=== PATIENT | female | born 1970 | race Two or more races ===

== ENCOUNTER 2021-10-21 08:45 | Outpatient (AMB) | payer BC, SELFPAY ==
--- NOTE | 2021-10-21 11:28 | UROVISIT ---
Intake Vital Signs 10/21/21 11:29 Height 1.55 m Height Method Stated Weight 62.596 kg Weight Measurement Method Estimated by Patient BMI 26.0 Intake Visit Reasons: 6 week follow up [employer] Required: Yes Is patient in pain?: No Allergy Allergies No Known Allergies Allergy (Verified 10/21/21 11:28) Home Meds Medication Reconciliation propranolol 10 mg tablet 10 mg PO QDAY 08/07/18 [History Confirmed 10/21/21] cyclobenzaprine 10 mg tablet 10 mg PO Q8H PRN #14 tab 10/28/19 [Rx Confirmed 10/21/21] meloxicam 15 mg tablet (Mobic) 15 mg PO QDAY #10 tab 10/28/19 [Rx Confirmed 10/21/21] allopurinol 100 mg tablet 100 mg PO QDAY 08/30/21 [History Confirmed 10/21/21] atorvastatin 10 mg tablet 10 mg PO QDAY 08/30/21 [History Confirmed 10/21/21] benazepril 20 mg-hydrochlorothiazide 12.5 mg tablet 1 tab PO QDAY 08/30/21 [History Confirmed 10/21/21] ergocalciferol (vitamin D2) 1,250 mcg (50,000 unit) capsule 1,250 mcg PO QMONTH 08/30/21 [History Confirmed 10/21/21] metformin 500 mg tablet 500 mg PO BID 08/30/21 [History Confirmed 10/21/21] Nurse Note: Patient had phone call visit with Dr Macias. Patient to be scheduled for mag 3 scan with lasix and follow up in 3 months. mvp Fall Screening Do you have a fear of falling?: No Have you had a fall in the last 2 months?: No Do you use an assistive device for ambulation?: No Current Vital Signs Height Height Method Weight Weight Measurement Method Body Mass Index 1.55 m Stated 62.596 kg Estimated by Patient 26.0 10/21/21 11:29 10/21/21 11:29 10/21/21 11:29 10/21/21 11:29 10/21/21 11:29 Nursing Documentation Social History Living Situation History Housing: House Tobacco History Smoking Status: Never smoker Alcohol History Alcohol Intake: Current Office Procedures Uro Level of Care Nursing/Assessment/Reassessment Patient Status: Established Patient Nursing Assessment/Reassessment: Update [facility] data in EMR and Medication Reconciliation Coordination of Care: Ref for ancillary service Special Needs: Language special needs Established Patient Point Assignment: 40 Uro Telephone call w/Clinical staff: 21-30 min Urology Clinic Office Visit Office Visit Date of visit:: October 21, 2021 08:45 Allergies & Home Medications: Allergies No Known Allergies Allergy (Verified 08/30/21 15:15) Visit: Reason for visit: [] Office Visit findings: []
[2021-10-21 11:29] VITALS: BMI 26.0
--- NOTE | 2021-10-22 07:03 | URONOTEN_ITS ---
RE: JUANITA DE LA VEGA : 1970 DATE: 10/21/2021 Because of emergency mandate, [id number] visit is not possible, therefore this medical necessary visit is conducted via telephonic communication. Fifteen minutes were spent in counseling and coordination of care of patient. CHIEF COMPLAINT: Ureteropelvic junction obstruction on the right side, status post right robotic pyeloplasty and right robotic pyelolithotomy. COMORBID CONDITIONS: 1. Diabetes mellitus. 2. Hypertension. 3. History of stone disease. HISTORY OF PRESENT ILLNESS: This is a 51-year-old English-speaking female. She underwent above procedure and she has done very well. She had history of abdominal pain. CAT scan was done. This revealed severe hydronephrosis on the right side. She is status post robotic pyeloplasty. She has frequency of urination 2 to 3 times at night, 6 to 8 times during the day. There is no history of hematuria, dysuria, or urinary tract infection. She denies any abdominal pain. COMORBID CONDITION: 1. Diabetes mellitus. 2. Hypertension. 3. She is 3, para 3, no hysterectomy. Past medical history, family history, review of systems, personal history, please refer to patient's history form dated, 10/21/2021. It is in HPI, in EMR. RECOMMENDATION: MAG-3 renal scan with Lasix and followup appointment after that. CAT scan was reviewed by me. She has severe right hydronephrosis. It could be a residual dilation of the calices of longstanding duration. Her BUN is 11, creatinine is 0.7, GFR is 60. Appointment for followup visit in Urology office after MAG-3 renal scan is given. DT: 14:41:55 TT: 21:30:00 Ref: - TID: [id number]
== END 2021-10-21 13:49 | disposition home or self-care (01) ==
LOC: HODUROTH 08:45
PROVIDERS: PCP Internal Medicine; Visit Provider Urology

== ENCOUNTER → 2024-08-20 | Outpatient (CLI) | payer BC, SELFPAY ==
[2024-08-20 08:41] LABS: Glucose Estimated Average 114 mg/dL (80-131); Hemoglobin A1C 5.6 % Hgb (4.8-6.0)
[2024-08-20 08:50] LABS: Creatinine MALB Rnd Ur 83 mg/dL (30-125); Microalbumin Creat Ratio 8 mg/gCrea (<30); Microalbumin, Random Urine 7 mg/L (0-300)
[2024-08-20 08:50] LABS: Alanine Aminotransferase 17 U/L (10-49); Albumin, Serum 4.5 gm/dL (3.5-5.0); Albumin/Globulin Ratio 2.1 (1.2-2.2); Alkaline Phosphatase 75 U/L (46-116); Anion Gap 5 (7-16); Aspartate Amino Transferase < 10 U/L (0-34); BUN/Creatinine Ratio 21 Ratio (12-20); Bilirubin,Total 0.4 mg/dL (0.3-1.2); Blood Urea Nitrogen 15 mg/dL (9-23); Calcium 10.5 mg/dL (8.3-10.6); Calcium (Corrected) 10.5 mg/dL (8.5-10.1); Carbon Dioxide 28.6 mMol/L (20.0-31.0); Cardiac Risk Estimate 3.7 RATIO (3.7-5.6); Chloride 107 mMol/L (98-107); Cholesterol 224 mg/dL (132-200); Creatinine (Component) 0.7 mg/dL (0.6-1.3); Globulin 2.1 gm/dL (2.3-3.5); Glucose 112 mg/dL (74-106); HDL Cholesterol 61 mg/dL (40-60); LDL Cholesterol,Calculated 139 mg/dL (0-130); Osmolality,Calculated 283 (275-295); Potassium 4.5 mMol/L (3.4-5.1); Sodium 141 mMol/L (136-145); Total Protein 6.6 gm/dL (5.7-8.2); Triglycerides 120 mg/dL (30-150); eGFR > 60 See Note
== END | disposition home or self-care (01) ==
LOC: COPL 07:07
PROVIDERS: PCP Internal Medicine; Referring Provider Internal Medicine; Visit Provider Internal Medicine
DX: E11.9 Type 2 diabetes mellitus without complications (principal); I10 Essential (primary) hypertension; E78.5 Hyperlipidemia, unspecified
CPT/HCPCS: 36415; 80053; 80061; 82043; 82570; 83036

== ENCOUNTER 2024-10-02 12:00 | Day surgery (SDC) | payer BC, SELFPAY ==
[2024-10-01 15:20] VITALS: BMI 27.7
[2024-10-02] VITALS (14 sets, daily range): BP systolic 83–154; BP diastolic 58–83; PULSE 52–92; RESP 13–22; TEMP 36.4; O2SAT 97–100; BMI 28.3
[2024-10-02] MEDS: fentaNYL CIT INJ 50 mCg/ML AMP 2ML (ASD USE ONLY) IV (14:00)
[2024-10-02] MEDS: MIDAZOLAM INJ 1 MG/ML VIAL 2 ML (ASD USE ONLY) 2 MG IV (14:03)
[2024-10-02] MEDS: DiphenhydrAMINE INJ 50 MG/ML VIAL 25 MG IV (14:14)
--- NOTE | 2024-10-02 15:08 | SUR.PHASEII ---
1505 Pt more awake and alert. Via [place]i speaker pt denies pain or N/V. Abd soft-pt passing flatus. Bijan PO fluids.
--- NOTE | 2024-10-02 15:36 | SUR.PHASEII ---
1524 Pt assessment unchanged. No complaints. Amb with steady gait. Able to dress self. Pt and given dc instructions. Both state understanding. Pt meets dc criteria-to home.
== END 2024-10-02 15:24 | disposition home or self-care (01) ==
PROVIDERS: PCP Internal Medicine; Referring Provider Surgery; Visit Provider Surgery
PROC: 0DBE8ZX Excision of Large Intestine, Via Natural or Artificial Opening Endoscopic, Diagnostic (ICD-10-PCS; CPT 45380; principal; 2024-10-02 13:00)
DX: Z12.11 Encounter for screening for malignant neoplasm of colon (principal)
CPT/HCPCS: 45378; J1200; J2250; J3010

== ENCOUNTER → 2024-10-17 | Outpatient (BNVA) | payer BC, SELFPAY | END | disposition home or self-care (01) | PROVIDERS: PCP Internal Medicine; Referring Provider Internal Medicine; Visit Provider Urology | DX: N13.30 Unspecified hydronephrosis (principal); Z87.442 Personal history of urinary calculi; I10 Essential (primary) hypertension; E11.9 Type 2 diabetes mellitus without complications; E21.0 Primary hyperparathyroidism; E78.5 Hyperlipidemia, unspecified; E66.9 Obesity, unspecified; Z68.28 Body mass index [BMI] 28.0-28.9, adult | CPT/HCPCS: 81003; 99212; G0463 ==

== ENCOUNTER → 2024-11-25 | Outpatient (CLI) | payer BC, SELFPAY ==
--- NOTE | 2024-11-25 13:00 | XR_ITS ---
Examination: Nuclear medicine kidney imaging flow and function multiple studies Exam date and time: November 25, 2024 1434 hours INDICATIONS: History right kidney stones 6 years, diabetic, nuclear medicine scan December 14, 2021 mildly reduced flow left kidney TECHNIQUE AND FINDINGS: Intravenous administration 10.4 mCi technetium 99m MAG3 Lasix administration 25 minutes post MAG3 Flow and function curves generated to 60 minutes Normal flow and function right kidney, Flow to the left kidney 70% flow to the right kidney Adequate left renal function Lasix has no effect on renal excretion IMPRESSION: Normal flow and function right kidney Adequate function left kidney
[2024-11-25 13:40] VITALS: BP 168/87; PULSE 66; RESP 16; O2SAT 98
[2024-11-25] MEDS: FUROSEMIDE INJ 10 MG/ML 4ML VIAL 40 MG IVP (13:40)
== END | disposition home or self-care (01) ==
PROVIDERS: PCP Internal Medicine; Referring Provider Internal Medicine; Visit Provider Internal Medicine
DX: N13.30 Unspecified hydronephrosis (principal)
CPT/HCPCS: 78709; A9562; J1940

== ENCOUNTER → 2024-12-17 | Outpatient (CLI) | payer BC, SELFPAY ==
[2024-12-17 09:16] LABS: Collection Type, Urine Clean Catch
[2024-12-17 09:49] LABS: Basophils % (Auto) 1 % (0-2.5); Eosinophils # (Auto) 0.1 Thou/mm3 (0.0-0.5); Eosinophils % (Auto) 2 % (0-10); Hematocrit 39.1 % (36.0-46.0); Hemoglobin 13.2 g/dL (12.0-16.0); Immature Granulocytes % (Auto) 0 % (0-0); Immature Granulocytes Auto 0.01 Thou/mm3 (0.00-0.00); Lymphocytes # (Auto) 1.7 Thou/mm3 (1.0-4.8); Lymphocytes % (Auto) 32 % (10-50); Mean Corpuscular HGB Conc 33.8 g/dl (31.0-37.0); Mean Corpuscular Hemoglobin 29.7 pg (25.0-35.0); Mean Corpuscular Volume 88 fL (80-100); Monocytes # (Auto) 0.3 Thou/mm3 (0.0-0.8); Monocytes % (Auto) 6 % (0-12); Neutrophils # (Auto) 3.1 Thou/mm3 (1.8-7.7); Neutrophils % (Auto) 59 % (37-80); Nucleated Red Blood Cell % 0 /100 WBC (0); Platelet Count 311 Thou/mm3 (140-440); RDW Standard Deviation 42.1 fL (36.4-46.3); Red Blood Count 4.44 Miln/mm3 (4.00-5.20); White Blood Count 5.2 Thou/mm3 (3.6-11.0)
[2024-12-17 09:57] LABS: Bilirubin,Urine Negative (Negative); Blood,Urine Negative (Negative); Clarity,Urine Clear (Clear/Hazy); Color,Urine Lt-Yellow (Lt Yel-Yel); Glucose, Urine Negative (Negative); Ketones,Urine Negative (Negative); Leukocyte Esterase,Urine Positive (Negative); Nitrite,Urine Negative (Negative); Protein,Urine Trace (Neg - Trace); RBC,Urine 6 /hpf (0-3); Specific Gravity,Urine 1.025 (1.001-1.035); Squamous Epithelial Cell,Urine 2 /hpf (0-5); Urobilinogen,Urine Negative mg/dL (0.0-1.0); WBC,Urine 2 /hpf (0-5)
[2024-12-17 10:08] LABS: Glucose Estimated Average 114 mg/dL (80-131); Hemoglobin A1C 5.6 % Hgb (4.8-6.0)
[2024-12-17 10:10] LABS: Vitamin D 25 Hydroxy Total 29.8 ng/mL (7.3-40.2)
[2024-12-17 10:18] LABS: Alanine Aminotransferase 19 U/L (10-49); Albumin, Serum 4.2 gm/dL (3.5-5.0); Albumin/Globulin Ratio 1.9 (1.2-2.2); Alkaline Phosphatase 80 U/L (46-116); Anion Gap 7 (7-16); Aspartate Amino Transferase 19 U/L (0-34); BUN/Creatinine Ratio 22 Ratio (12-20); Bilirubin,Total 0.6 mg/dL (0.3-1.2); Blood Urea Nitrogen 13 mg/dL (9-23); Calcium 9.6 mg/dL (8.3-10.6); Calcium (Corrected) 9.6 mg/dL (8.5-10.1); Carbon Dioxide 30.6 mMol/L (20.0-31.0); Cardiac Risk Estimate 3.5 RATIO (3.7-5.6); Chloride 104 mMol/L (98-107); Cholesterol 212 mg/dL (132-200); Creatinine (Component) 0.6 mg/dL (0.6-1.3); Globulin 2.2 gm/dL (2.3-3.5); Glucose 89 mg/dL (74-106); HDL Cholesterol 61 mg/dL (40-60); LDL Cholesterol,Calculated 129 mg/dL (0-130); Osmolality,Calculated 282 (275-295); Potassium 4.1 mMol/L (3.4-5.1); Sodium 142 mMol/L (136-145); Thyroid Stimulating Hormone 0.64 uIU/mL (0.55-4.78); Total Protein 6.4 gm/dL (5.7-8.2); Triglycerides 109 mg/dL (30-150); eGFR > 60 See Note
== END | disposition home or self-care (01) ==
LOC: COPL 08:46
PROVIDERS: PCP Internal Medicine; Referring Provider Internal Medicine; Visit Provider Internal Medicine
DX: I10 Essential (primary) hypertension (principal); E78.5 Hyperlipidemia, unspecified; E11.9 Type 2 diabetes mellitus without complications; E21.0 Primary hyperparathyroidism
CPT/HCPCS: 36415; 80053; 80061; 81001; 82306; 83036; 83970; 84443; 85025

== ENCOUNTER → 2024-12-27 | Outpatient (BNVA) | payer BC, SELFPAY | END | disposition home or self-care (01) | PROVIDERS: PCP Internal Medicine; Referring Provider Internal Medicine; Visit Provider Urology | DX: Z76.89 Persons encountering health services in other specified circumstances (principal) | CPT/HCPCS: 99212; 99213; G0463 ==

== ENCOUNTER → 2025-04-21 | Outpatient (CLI) | payer BC, SELFPAY ==
[2025-04-21 09:50] LABS: Basophils # (Auto) 0.0 Thou/mm3 (0.0-0.2); Basophils % (Auto) 1 % (0-2.5); Eosinophils # (Auto) 0.1 Thou/mm3 (0.0-0.5); Eosinophils % (Auto) 2 % (0-10); Hematocrit 38.9 % (36.0-46.0); Hemoglobin 13.4 g/dL (12.0-16.0); Immature Granulocytes Auto 0.01 Thou/mm3 (0.00-0.00); Lymphocytes # (Auto) 1.8 Thou/mm3 (1.0-4.8); Lymphocytes % (Auto) 35 % (10-50); Mean Corpuscular HGB Conc 34.4 g/dl (31.0-37.0); Mean Corpuscular Hemoglobin 29.6 pg (25.0-35.0); Mean Corpuscular Volume 86 fL (80-100); Monocytes # (Auto) 0.4 Thou/mm3 (0.0-0.8); Monocytes % (Auto) 7 % (0-12); Neutrophils # (Auto) 2.8 Thou/mm3 (1.8-7.7); Neutrophils % (Auto) 55 % (37-80); Nucleated Red Blood Cell # 0.00 Thou/mm3 (0.00-0.00); Nucleated Red Blood Cell % 0 /100 WBC (0); Platelet Count 320 Thou/mm3 (140-440); RDW Standard Deviation 39.9 fL (36.4-46.3); Red Blood Count 4.52 Miln/mm3 (4.00-5.20); White Blood Count 5.1 Thou/mm3 (3.6-11.0)
[2025-04-21 10:02] LABS: Collection Type, Urine Clean Catch
[2025-04-21 10:13] LABS: Glucose Estimated Average 131 mg/dL (80-131); Hemoglobin A1C 6.2 % Hgb (4.8-6.0)
[2025-04-21 10:37] LABS: Albumin, Serum 4.3 gm/dL (3.5-5.0); Anion Gap 9 (7-16); BUN/Creatinine Ratio 24 Ratio (12-20); Blood Urea Nitrogen 17 mg/dL (9-23); Calcium 9.8 mg/dL (8.3-10.6); Calcium (Corrected) 9.8 mg/dL (8.5-10.1); Carbon Dioxide 27.3 mMol/L (20.0-31.0); Chloride 107 mMol/L (98-107); Creatinine (Component) 0.7 mg/dL (0.6-1.3); Glucose 101 mg/dL (74-106); Osmolality,Calculated 286 (275-295); Phosphorous 3.2 mg/dL (2.4-5.1); Potassium 3.9 mMol/L (3.4-5.1); Sodium 143 mMol/L (136-145); Thyroid Stimulating Hormone 0.73 uIU/mL (0.55-4.78); eGFR > 60 See Note
[2025-04-21 10:52] LABS: Bilirubin,Urine Negative (Negative); Blood,Urine Trace (Negative); Clarity,Urine Clear (Clear/Hazy); Color,Urine Lt-Yellow (Lt Yel-Yel); Glucose, Urine Negative (Negative); Hyaline Casts,Urine < 1 /hpf (0-1); Ketones,Urine Negative (Negative); Leukocyte Esterase,Urine Positive (Negative); Nitrite,Urine Negative (Negative); PH,Urine 6.0 (5.0-7.0); Protein,Urine Trace (Neg - Trace); RBC,Urine 7 /hpf (0-3); Specific Gravity,Urine 1.027 (1.001-1.035); Squamous Epithelial Cell,Urine 5 /hpf (0-5); Urobilinogen,Urine Negative mg/dL (0.0-1.0); WBC,Urine 6 /hpf (0-5)
== END | disposition home or self-care (01) ==
PROVIDERS: PCP Internal Medicine; Referring Provider Internal Medicine; Visit Provider Internal Medicine
DX: I12.9 Hypertensive chronic kidney disease with stage 1 through stage 4 chronic kidney disease, or unspecified chronic kidney disease (principal); N18.30 Chronic kidney disease, stage 3 unspecified; E03.9 Hypothyroidism, unspecified
CPT/HCPCS: 36415; 80069; 81001; 83036; 84443; 85025